=== PATIENT | female | born 1995 | race African-American/Black ===

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

== ENCOUNTER 2018-01-11 21:48 | Emergency (ER) | payer MEDICAID ==
[~2018-01-11] VITALS: Ht 162.6 cm; Wt 51.7 kg
[2018-01-11 21:54] VITALS: BP 118/76
[2018-01-11 23:19] LABS: ANION GAP 11.7 (8-16); CARBON DIOXIDE 26.7 mmol/L (21-32); CREATININE 0.7 mg/dL (0.6-1.3); POTASSIUM 3.4 mmol/L (3.5-5.1)
[2018-01-11 23:25] LABS: TOTAL BILIRUBIN 0.2 mg/dL (0.0-1.0)
[2018-01-12] MEDS ORDERED: ONDANSETRON 4 MG ODT PO ONE (00:05)
[2018-01-12] MEDS ORDERED: DICYCLOMINE HCL LIQUID 20 MG, ALUMINUM HYD/MAG/SIMETHICONE 30 ML, LIDOCAINE VISCOUS 2% ... PO ONE ×3 (00:05)
[2018-01-12 01:15] VITALS: BP 108/62
== END 2018-01-12 01:15 | disposition home or self-care (01) ==
LOC: MED 21:48
DX: R10.13 Epigastric pain (principal); R11.2 Nausea with vomiting, unspecified
CPT/HCPCS: 36415; 80053; 81002; 81025; 83690; 99284; Q0162

== ENCOUNTER 2019-01-24 12:06 | Emergency (ER) | payer SELFPAY ==
[~2019-01-24] VITALS: Ht 162.6 cm; Wt 53.1 kg
--- NOTE | 2019-01-24 12:12 | NUR ---
Patient ambulated to bed 2. RN evaluating patient at bedside.
[2019-01-24 12:14] VITALS: BP 108/70
[2019-01-24] MEDS ORDERED: ACETAMINOPHEN 325 MG TAB PO ONE (12:15)
--- NOTE | 2019-01-24 12:16 | NUR ---
MEDICATED PER FEVER PROTOCOL
--- NOTE | 2019-01-24 12:18 | NUR ---
PATIENT PRESENTS TO ED WITH C/O BODY ACHES, NAUSEA X 1 DAY. TEMP 100.6F NOW. GENRALIZED PAIN 10/28, VSS; PATIENT POSITIONED FOR COMFORT; HOB ELEVATED; BEDRAILS UP X2; BED DOWN. ER MD MADE AWARE OF PT STATUS.
[2019-01-24] MEDS ORDERED: ACETAMINOPHEN 325 MG TAB ONE (12:19)
--- NOTE | 2019-01-24 12:30 | NUR ---
Patient being evaluated by physician at bedside.
[2019-01-24] MEDS ORDERED: ONDANSETRON 4 MG/2 ML VIAL IVP ONE (12:50)
[2019-01-24] MEDS ORDERED: KETOROLAC 15 MG/ML VIAL IVP ONE ×2 (12:50→14:50)
[2019-01-24] MEDS ORDERED: NACL 0.9% 1,000 ML IV ONE (12:50)
--- NOTE | 2019-01-24 13:10 | NUR ---
XRAY AT BEDSIDE
[2019-01-24 13:31] LABS: APPEARANCE,URINE CLEAR (CLEAR); BILIRUBIN,URINE 1+ (NEGATIVE); BLOOD, URINE 3+ (NEGATIVE); COLOR,URINE YELLOW (YELLOW); LEUKOCYTE ESTERASE ,URINE NEGATIVE (NEGATIVE); NITRITE, URINE NEGATIVE (NEGATIVE); PH,URINE 5.5 (5.0-9.0); UGLUCOSE NEGATIVE (NEGATIVE)
[2019-01-24 13:35] LABS: BASOPHILS % (AUTO) 0.3 % (0.0-2.0); EOSINOPHILS # (AUTO) 0.2 K/uL (0-0.4); HEMATOCRIT 39.8 % (36-48); HEMOGLOBIN 13.2 g/dL (12.0-16.0); LYMPHOCYTES # (AUTO) 0.3 K/uL (2.5-16.5); LYMPHOCYTES % (AUTO) 4.1 % (20.5-51.1); MEAN CORPUSCULAR HEMOGLOBIN 31 pg (27-31); MEAN CORPUSCULAR HGB CONC 33 g/dL (33-37); MEAN CORPUSCULAR VOLUME 94.3 fL (80-94); MONOCYTES # (AUTO) 0.5 K/uL (0.8-1.0); MONOCYTES % (AUTO) 6.5 % (1.7-9.3); NEUTROPHILS # (AUTO) 6.9 K/uL (1.8-7.7); NEUTROPHILS % (AUTO) 87.1 % (42.2-75.2); PLATELET COUNT (AUTO) 146 K/uL (140-450); RED BLOOD CELL COUNT(AUTO) 4.22 MIL/uL (4.20-5.40); RED CELL DISTRIBUTION WIDTH 13.8 % (11.6-13.7)
[2019-01-24 13:37] LABS: ANION GAP 14.9 (8-16); CARBON DIOXIDE 24.3 mmol/L (21-32); CREATININE 0.7 mg/dL (0.6-1.3); POTASSIUM 3.2 mmol/L (3.5-5.1)
[2019-01-24 13:44] LABS: ALBUMIN 4.2 g/dL (3.4-5.0); TOTAL BILIRUBIN 0.4 mg/dL (0.0-1.0)
[2019-01-24 13:59] LABS: RBC,URINE 11-20 (MOD) /HPF (0-5); WBC,URINE 0-5 /HPF (0-5)
--- NOTE | 2019-01-24 14:00 | NUR ---
PT STILL C/O GENERALZIED BODY ACHING, BIANCA ARNOLD MADE AWARE.
[2019-01-24] MEDS ORDERED: MAGNESIUM OXIDE 400 MG TAB PO ONE (14:20)
[2019-01-24] MEDS ORDERED: POTASSIUM CHLORIDE 10 MEQ TABER PO ONE (14:20)
--- NOTE | 2019-01-24 15:23 | NUR ---
PT REPORTS RELIEF FROM PAIN AT THIS TIME. VSS. RR EVEN AND UNLABORED. ALL NEEDS MET.
[2019-01-24 15:24] VITALS: BP 114/63
--- NOTE | 2019-01-24 15:24 | NUR ---
Patient discharged with v/s stable. Written and verbal after care instructions given and explained. Patient alert, oriented and verbalized understanding of instructions. Ambulatory with steady gait. All questions addressed prior to discharge. ID band removed. Patient advised to follow up with PMD. Rx of NAPROSYN, ZOFRAN ODT given. Patient educated on indication of medication including possible reaction and side effects. Opportunity to ask questions provided and answered.
== END 2019-01-24 15:24 | disposition home or self-care (01) ==
LOC: MED 12:06
DX: B34.9 Viral infection, unspecified (principal); R42 Dizziness and giddiness
CPT/HCPCS: 36415; 71045; 80053; 81001; 81025; 83605; 85025; 87040; 87804; 96361; 96374; 96375; 96376; 99284; J1885; J2405; J7030; Q0092